=== PATIENT | female | born 1985 | race African-American/Black ===

== ENCOUNTER 2017-03-02 09:00 | Outpatient (CLI) | payer SELFPAY ==
[2017-03-05 12:44] LABS: #Eosinphils 0.1 thou/uL (0.0-0.7); #Lymphocytes 1.4 thou/uL (1.20-3.40); #Monocytes 0.4 thou/uL (0.11-0.59); #Neutrophils 2.3 thou/uL (1.40-6.50); %Basophils 0.7 % (0.0-1.0); %Eosinophils 2.3 % (0.0-10.0); %Monocytes 8.8 % (0.0-10.0); Hematocrit 29.9 % (36.0-47.0); Mean Platelet Volume 10.2 fL (7.4-10.4); Red Blood Cell (RBC) Count 3.34 mill/uL (4.20-5.40); White Blood Cell (WBC) Count 4.1 thou/uL (4.8-10.8)
== END 2017-03-02 09:01 | disposition home or self-care (01) ==
LOC: LABBT 09:00
PROVIDERS: ATTEND Orthopaedic Surgery Hand Surgery
DX: Z01.812 Encounter for preprocedural laboratory examination (principal); S56.222A Laceration of other flexor muscle, fascia and tendon at forearm level, left arm, initial encounter; S51.802A Unspecified open wound of left forearm, initial encounter
CPT/HCPCS: 85025

== ENCOUNTER 2017-03-06 13:39 | Day surgery (SDC) | payer SELFPAY ==
[2017-03-05 11:56] VITALS: BMI 26.6
[2017-03-06] MEDS ORDERED: Midazolam HCl 2 mg/2 ml Vial ONE (15:19)
[2017-03-06] MEDS ORDERED: Bacitracin Zinc Ointment 30 gm TUBE ONE (15:48)
[2017-03-06] MEDS ORDERED: Thrombin 5000 UNITS/5 ML VIAL ONE (15:48)
[2017-03-06] MEDS ORDERED: Bupivacaine PF 0.5% 30 ML VIAL ONE (15:48)
[2017-03-06] MEDS ORDERED: Lidocaine 1% (PF) 30 ML VIAL ONE (15:48)
[2017-03-06] MEDS ORDERED: Sodium Chloride 0.9% 30 ML ONE (15:53)
[2017-03-06] MEDS ORDERED: Fentanyl 100 MCG/2 ML VIAL ONE (16:02)
[2017-03-06] MEDS ORDERED: Ketorolac Tromethamine 30 MG/ML VIAL ONE (18:04)
--- NOTE | 2017-03-07 18:40 | OP ---
DATE OF PROCEDURE: 03/06/2017 PREOPERATIVE DIAGNOSIS: Flexor tendon laceration with open wound, 1 cm to proximal third and mid th ird junction of the forearm. FINDINGS: 1. A 3 cm wound with minimal contamination. 2. Flexor carpi radialis laceration complete. 3. Flexor digitorum superficialis primary muscle belly tendon junction laceration and 3 palmaris lo ngus laceration. TOURNIQUET TIME: 30 minutes. PROCEDURES PERFORMED: 1. Debridement of wound, intermediate depth to include excision of dermis and epidermis with tenoto my scissors and an 11-blade knife; debridement of fat with sharp tenotomy scissors; debridement of m uscle that was denuded along with small early hematoma down to the level of the muscle under the fas gaurav; curettage of and for preparation of the tendons with a curette, small; and irrigation of wound with 3 liters normal saline and Pulsavac pressure. 2. Repair of the flexor carpi radialis. 3. Repair of flexor digitorum superficialis. 4. Repair of flexor pollicis longus. 5. Closure of the wound complex technique 3 cm. 6. Application of palmar mid dorsal block splint, 4-inch wide, approximately 24-inch long. DESCRIPTION OF PROCEDURE: After successful general endotracheal anesthesia, the limb was prepped an d draped. The patient then had the timeout done appropriately, limb was exsanguinated, tourniquet i nflated to 250 mmHg pressure. We extended the incision 3 cm distal and 3 cm proximal to expose all the underlying tissue. We debrided the wound edge where the incision actually was made in the same technique as above, snd we used the same technique for this as above to debride subcutaneous fat, mu scle, and hematoma. We explored the ulnar nerve first where once we saw a partial laceration of the flexor carpi and flexor digitorum superficialis to the small finger, but ulnar neurovascular bundle was intact. We explored the median nerve and neurovascular bundle was intact throughout the field. We then debrided the edges of the tendons, then first repaired the palmaris longus using modified Ke ssler technique with a running 6-0 Prolene. We then used a [id number] technique to repair the flexor digitorum superficialis plus carpi radialis. Tourniquet was deflated. Hemostasis obtained. The wound had been already irrigated with 3 liters normal saline and Pulsavac pressure as well as a nother 1 liter of normal saline bulb syringe used and then we prepared for closure. First prior to the closure, we had resected the 1 mm circumferentially around the skin edge where the laceration to ok place, then we performed the closure in two layers with a running 4-0 Monocryl followed by 4-0 ny miguel in interrupted mattress for epidermis. The patient left operating room with a bulky dressing, a nd a palmar splint with the wrist at 20 degrees of flexion and the MP joints at 70 degrees of flexio n.
== END 2017-03-06 19:00 ==
LOC: SDC 13:39
PROVIDERS: ATTEND Orthopaedic Surgery Hand Surgery
PROC: 0KBB0ZZ Excision of Left Lower Arm and Wrist Muscle, Open Approach (ICD-10-PCS; principal; 2017-03-06)
PROC: 0JQH0ZZ Repair Left Lower Arm Subcutaneous Tissue and Fascia, Open Approach (ICD-10-PCS; principal; 2017-03-06)
PROC: 0LM Tendons, Reattachment (ICD-10-PCS; 2017-03-06)
DX: S56.129A Laceration of flexor muscle, fascia and tendon of unspecified finger at forearm level, initial encounter (principal); S66.109A Unspecified injury of flexor muscle, fascia and tendon of unspecified finger at wrist and hand level, initial encounter; F17.210 Nicotine dependence, cigarettes, uncomplicated
CPT/HCPCS: A4216; J1885; J2001; J2250; J3010; J3490; S0020

== ENCOUNTER 2020-10-20 14:43 | Emergency (ER) | payer SELFPAY | END 2020-10-20 15:20 | disposition home or self-care (01) | LOC: ERS 14:43 | DX: R20.2 Paresthesia of skin (principal); L29.9 Pruritus, unspecified; F17.200 Nicotine dependence, unspecified, uncomplicated | CPT/HCPCS: 99283 ==